=== PATIENT | female | born 1945 | race Caucasian/White ===

== ENCOUNTER → 2017-01-03 | Outpatient (CLI) | payer MEDICARE ==
--- NOTE | 2017-01-03 19:29 | CTL ---
EXAMINATION TYPE: CT Low Dose Lung DATE OF EXAM ORDERED: 01/03/2017 HISTORY: . Lung cancer screening CT DLP: 88.[address] CTDI: 2.95 mGy Automated exposure control for dose reduction was used. SCREENING VISIT: COMPARISON: 08/07/2015 TECHNIQUE: Low dose computed tomography scan was performed through the chest at 1 mm thick sections a nd reconstructed images in the coronal plane at [address] DIAGNOSTIC QUALITY: Satisfactory FINDINGS: LUNG NODULES: None. LUNGS: COPD: Severity: Minimal Fibrosis: Severity: Minimal Lymph nodes: None Other findings: Atherosclerotic ossification in the thoracic aorta. No evidence of aneurysm. Coronary artery calcification. Coarse linear density at the lung bases consistent with fibrosis and atelectasis. RIGHT PLEURAL SPACE: Effusion: None Calcification: None Thickening: None Pneumothorax: None LEFT PLEURAL SPACE: Effusion: None Calcification: None Thickening: Mild pleural thickening at the left lung apex. This is similar to old exam Pneumothorax: None HEART: Heart Size: Normal Coronary calcification: Moderate Pericardial effusion: None IMPRESSION: There is new coarse linear density at the lung bases compared to old exam consistent with scarring and atelectasis. No evidence of a pulmonary mass. Stable mild pleural thickening at the lef t lung apex. There is stable lingula subpleural atelectasis. There is clearing of right middle lobe a telectasis compared to old exam. FOLLOW UP CT CHEST RECOMMENDATION: As indicated CT LUNG RAD: 1
== END | disposition home or self-care (01) ==
LOC: RADCTMAIN 18:56
PROVIDERS: ATTEND Family Medicine
DX: Z12.2 Encounter for screening for malignant neoplasm of respiratory organs (principal); J98.11 Atelectasis; J92.9 Pleural plaque without asbestos; R91.8 Other nonspecific abnormal finding of lung field; Z87.891 Personal history of nicotine dependence

== ENCOUNTER → 2018-07-27 | Outpatient (CLI) | payer MEDICARE ==
--- NOTE | 2018-07-28 03:53 | CTL ---
EXAMINATION TYPE: CT Low Dose Lung DATE OF EXAM ORDERED: 07/27/2018 HISTORY: 72-year-old female Personal history of tobacco use. Lung cancer screening CT DLP: 72.[address] CTDI: 2.4 mGy Automated exposure control for dose reduction was used. SCREENING VISIT: 1.5 year follow-up from prior exam COMPARISON: 01/03/2017 TECHNIQUE: Low dose computed tomography scan was performed through the chest at 1 mm thick sections a nd reconstructed images in the coronal/sagittal plane. Additional coronal MIP reconstructions were pe rformed. CT DIAGNOSTIC QUALITY: Satisfactory FINDINGS: Heart normal size of pericardial effusion. Prominent coronary vessel calcifications are present. Aorta normal caliber with conventional arch was a branching anatomy. Moderate atherosclerotic calcifi cations throughout the thoracic aorta. 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 Scattered nonenlarged mediastinal lymph nodes. No thoracic lymphadenopathy by CT size criteria. Mild to moderate diffuse bronchial wall thickening is redemonstrated with stable strandy scarring inf erior lingula. Additional strandy scarring or atelectasis posterior lung bases. Patchy opacity basilar right middle lobe with air bronchograms is new in the interval. Scattered mild centrilobular emphysema. A few focal areas of endobronchial opacification within the b asilar left lower lobe, referred to axial images 152, 155, 166, and 170. Visualized upper abdomen shows no gross abnormality. Bones: Anterior endplate spondylosis mid to lower thoracic spine. Normal variant sternal foramina. IMPRESSION: 1. Lung RADS 3 - probably benign; new airspace disease right middle lobe and a couple areas of endobr onchial opacification in the basilar left lower lobe. Findings suspected to be on an infectious/infla mmatory basis with mucoid impaction. Also, correlate for possible pneumonia in the right middle lobe. 2. COPD with mild emphysema but either a prominent component of chronic bronchitis or superimposed ac marin bronchitis. 3. CAD and mild aneurysm mid descending thoracic aorta at 3.0 cm. RECOMMENDATION: 1. Six-month follow-up low-dose CT chest to ensure clearance of the right middle lobe consolidation a nd endobronchial densities in the basilar left lower lobe. 2. Correlate for possible pneumonia in the right middle lobe. 3. Smoking cessation. FOLLOW UP CT CHEST RECOMMENDATION: [address] LUNG RAD: Lung-Rad 3 Probably Benign
== END | disposition home or self-care (01) ==
LOC: RADCTMAIN 16:16
PROVIDERS: ATTEND Physician Assistant
DX: Z12.2 Encounter for screening for malignant neoplasm of respiratory organs (principal); F17.210 Nicotine dependence, cigarettes, uncomplicated

== ENCOUNTER → 2020-11-10 | Outpatient (CLI) | payer MEDICARE ==
--- NOTE | 2020-11-10 16:42 | ECHOF ---
Referral Reason:I10 HTN MEASUREMENTS -------- HEIGHT: 152.4 cm WEIGHT: 82.6 kg BP: RVIDd: 2.2 cm (< 3.3) IVSd: 1.4 cm (0.6 - 1.1) LVIDd: 4.6 cm (3.9 - 5.3) LVPWd: 1.1 cm (0.6 - 1.1) IVSs: 1.8 cm LVIDs: 3.2 cm LVPWs: 1.4 cm LAESV Index (A-L): 30.41 ml/m Ao Diam: 2.6 cm (2.0 - 3.7) AV Cusp: 1.2 cm (1.5 - 2.6) LA Diam: 5.0 cm (2.7 - 3.8) MV EXCURSION: 11.243 mm (> 18.000) MV EF SLOPE: 76 mm/s (70 - 150) EPSS: 0.7 cm MV E Hemal: 0.76 m/s MV DecT: 174 ms MV A Hemal: 1.09 m/s MV E/A Ratio: 0.69 AV maxP.38 mmHg AV meanP.59 mmHg RAP: 5.00 mmHg RVSP: 18.30 mmHg FINDINGS -------- Sinus rhythm. This was a technically adequate study. The left ventricular size is normal. There is moderate concentric left ventricular hypertrophy. O verall left ventricular systolic function is normal with, an EF between 55 - 60 %. The right ventricle is normal in size. LA is midly dilated 29-33ml/m2. The right atrial size is normal. Interatrial and interventricular septum intact. There is moderate aortic valve sclerosis. There is mild aortic stenosis present. Peak/mean gradie nt across the Aortic Valve is 15.38mmHg / 8.59mmHg. Mild mitral regurgitation is present. Mild tricuspid regurgitation present. There is no evidence of pulmonary hypertension. The right v entricular systolic pressure, as measured by Doppler, is 18.30mmHg. Trace/mild (physiologic) pulmonic regurgitation. The aortic root size is normal. IVC Not well visulized. There is no pericardial effusion. CONCLUSIONS -------- 1. The left ventricular size is normal. 2. There is moderate concentric left ventricular hypertrophy. 3. Overall left ventricular systolic function is normal with, an EF between 55 - 60 %. 4. LA is midly dilated 29-33ml/m2. 5. There is moderate aortic valve sclerosis. 6. There is mild aortic stenosis present. 7. Mild mitral regurgitation is present. 8. Mild tricuspid regurgitation present. 9. Trace/mild (physiologic) pulmonic regurgitation. FIELD COUNSEL: Tonie Saldivar RDCS
--- NOTE | 2020-11-10 21:44 | CTL ---
EXAMINATION TYPE: CT Low Dose Lung DATE OF EXAM ORDERED: 11/10/2020 HISTORY: Personal history of tobacco use. Lung cancer screening CT DLP: [address] CTDI: 2.68 mGy Automated exposure control for dose reduction was used. SCREENING VISIT: 20 month follow-up from prior exam. COMPARISON: 07/27/2018 TECHNIQUE: Low dose computed tomography scan was performed through the chest at 1 mm thick sections a nd reconstructed images in the coronal plane at [address] DIAGNOSTIC QUALITY: Satisfactory FINDINGS: LUNG NODULES: None. LUNGS: COPD: Severity: Mild Fibrosis: Severity: None Lymph nodes: None Other findings: Small area of lingular consolidation. Right basilar scarring/atelectasis. Central bro nchial wall thickening. RIGHT PLEURAL SPACE: Effusion: None Calcification: None Thickening: None Pneumothorax: None LEFT PLEURAL SPACE: Effusion: None Calcification: None Thickening: None Pneumothorax: None HEART: Heart Size: Normal Coronary calcification: Severe Pericardial effusion: None OTHER FINDINGS: Upper abdomen: Small hiatal hernia. Bony thorax: Degenerative changes of the spine. Supraclavicular region: Unremarkable. Other: Dense atherosclerotic disease of the aorta. IMPRESSION: 1. Small lingular consolidation which could represent pneumonia in the appropriate clinical setting. Recommend short-term follow-up in 3 months to assess for resolution. 2. No suspicious lung nodules. CT LUNG RAD AND CT CHEST RECOMMENDATION: Lung-Rad 1 Negative: Continue annual screening with LDCT in 12 months. S Modifier (other clinically significant findings): Small lingular consolidation.
== END | disposition home or self-care (01) ==
LOC: RADCTMAIN 13:28
PROVIDERS: ATTEND Family Medicine
DX: I08.3 Combined rheumatic disorders of mitral, aortic and tricuspid valves (principal); Z12.2 Encounter for screening for malignant neoplasm of respiratory organs; J18.9 Pneumonia, unspecified organism
CPT/HCPCS: 71271; 93306

== ENCOUNTER → 2022-10-15 | Outpatient (CLI) | payer MEDICARE ==
--- NOTE | 2022-10-15 19:22 | BD ---
EXAMINATION TYPE: Axial Bone Density DATE OF EXAM: 10/15/2022 CLINICAL HISTORY: 77 years old Female. ICD-10 CODE: Z78.0 ASYMPTOMATIC MENOPAUSAL STATE Height: 59 Weight: 159.6 FRAX RISK QUESTIONS: Alcohol (3 or more units per day): no Family History (Parent hip fracture): no Glucocorticoids (More than 3mos): no (Ex: prednisone, prednisolone, methylprednisolone, dexamethasone, and hydrocortisone). History of Fracture in Adulthood: no Secondary Osteoporosis: 1. Type 1 Diabetes: no 2. Hyperthyroidism: no 3. Menopause before 45: no 4. Malnutrition: no 5. Chronic liver disease: no Rheumatoid Arthritis: no Current Tobacco Use: yes RISK FACTORS HISTORY OF: History of Wrist Fracture: right When: as a child Surgery to Spine/Hip(right/left)/Wrist (right/left): no Family History of Osteoporosis: no Active: no Diet low in dairy products/other sources of calcium: yes Postmenopausal woman: yes Lost more than 2 inches in height since high school: no MEDICATIONS: Additional History: EXAM MEASUREMENTS: Bone mineral densitometry was performed using the MC2 System. Bone mineral density as measured about the Lumbar spine is: ----- L1-L4(G/cm2): 1.169 T Score Values are as follows: ----- L1: -0.1 ----- L2: 0.0 ----- L3: -0.2 ----- L4: -0.3 ----- L1-L4: -0.1 Z Score Values are as follows: ----- L1: 1.5 ----- L2: 1.6 ----- L3: 1.4 ----- L4: 1.2 ----- L1-L4: 1.4 Bone mineral density : baseline Bone mineral density about the R hip (g/cm2): 0.822 Bone mineral density about the L hip (g/cm2): 0.827 T Score values are as follows: -----R Neck: -2.0 -----L Neck: -2.1 -----R Total: -1.5 -----L Total: -1.4 Z Score values are as follows: -----R Neck: -0.2 -----L Neck: -0.3 -----R Total: 0.1 -----L Total: 0.2 Bone mineral density : baseline FRAX%s: The graph provided illustrates a 15.0% chance for a major osteoporotic fx and a 6.1% chance f or the hips probability for fx in 10 years time. IMPRESSION: Osteopenia (T Score between -2.5 and -1). There is slightly increased risk of fracture and the patient may be considered for treatment. Re-Screen 2-5 years. NOTE: T-SCORE=SD OF THE YOUNG ADULT MEAN.
--- NOTE | 2022-10-16 19:12 | MM ---
Reason for Exam: Screening (asymptomatic). Last mammogram was performed 10 year(s) and 2 month(s) ago. Patient History: Menarche at age 12. First Full-Term at age 19. Left ovary removed at age 46. Right ovary removed at age 46. Hysterectomy at age 46. Postmenopausal. Patient has history of breast feeding. Patient used Estrogen for 8 years. Mother had breast cancer at or over age 50. Risk Values: Paty 5 year model risk: 3.6%. NCI Lifetime model risk: 7.2%. Prior Study Comparison: No prior studies available for comparison. Tissue Density: There are scattered fibroglandular densities. Findings: Analyzed By CAD. Fibroglandular density is present primarily in the subareolar region of both breasts. There is no suspicious group of microcalcifications, significant mass, or other discrete abnormality in either breast. Overall Assessment: Benign, BI-RAD 2 Management: Screening Mammogram of both breasts in 1 year. . Patient should continue monthly self-breast exams. A clinical breast exam by your physician is recommended on an annual basis. This exam should not preclude additional follow-up of suspicious palpable abnormalities. Note on Paty scores and lifetime risk: 1. A Paty score greater than 3% is considered moderate risk. If this is the case, consider specialist referral to assess eligibility for a risk reducing agent. 2. If overall lifetime risk for the development of breast cancer is 20% or higher, the patient may qualify for future screening with alternating mammogram and breast MRI. Electronically signed and approved by: Kenia Robert M.D. Radiologist
== END | disposition home or self-care (01) ==
LOC: RADMAMWWP 15:30
PROVIDERS: ATTEND Family Medicine
DX: Z12.31 Encounter for screening mammogram for malignant neoplasm of breast (principal); M85.89 Other specified disorders of bone density and structure, multiple sites; Z78.0 Asymptomatic menopausal state; Z80.3 Family history of malignant neoplasm of breast
CPT/HCPCS: 77063; 77067; 77080

== ENCOUNTER → 2023-08-08 | Outpatient (CLI) | payer MEDICARE ==
--- NOTE | 2023-08-18 11:00 | CTL ---
EXAMINATION TYPE: CT Low Dose Lung DATE OF EXAM: 08/08/2023 6:16 PM CLINICAL INDICATION:Female, 78 years old with history of F17.210 NICOTINE DEPENDENCE; Current smoker. [id number]. , history of tobacco use. COMPARISON: 11/10/2020 TECHNIQUE: Multiple axial non-contrast scans were obtained from approximately the lung apices through the upper abdomen. Coronal and sagittal reformatted images were obtained. Low dose technique was uti lized. CT DLP: 82.6 mGycm, Automated exposure control for dose reduction was used. CT Contrast: Contrast used: None Oral contrast used: None FINDINGS: ======== Lack of intravenous contrast and low dose technique limits the evaluation of the vascular and soft ti ssue structures. LUNGS: No evidence of pulmonary fibrosis. No evidence of focal consolidation, pneumothorax or pleural effusion. Mild centrilobular emphysema changes. Nodules: RUL: None. RML: None. RLL: None. MYRTLE: None. LLL: None. AIRWAY: Patent and unremarkable. HEART: The heart is mildly enlarged for size. Coronary artery and aortic valve calcifications. MEDIASTINUM: No gross evidence of adenopathy. VASCULATURE: No aortic aneurysm. MUSCULOSKELETAL: No acute osseous abnormalities SOFT TISSUES/LYMPH NODES: Unremarkable. LOWER NECK: No significant findings. UPPER ABDOMEN: No significant findings. IMPRESSION: 1. No clinically significant pulmonary nodules. 2. Mild emphysema. 3. Coronary artery and aortic valve leaflet calcifications. CT LUNG RAD AND CT CHEST RECOMMENDATION: Lung-Rad 1 Negative: Continue annual screening with LDCT in 12 months. S Modifier (other clinically significant findings): None Recommend smoking cessation (if current smoker), or continuation of smoking cessation (if prior smoke r). Annual screening for lung cancer with low-dose computed tomography is recommended in adults ages 55 to 77 years who have a 30 pack-year smoking history and currently smoke or have quit within the pa st 15 years. Screening should be discontinued once a person has not smoked for 15 years or develops a health problem that substantially limits life expectancy or the ability or willingness to have curat zafar lung surgery. Lung rads 2021 [email or web address]
== END | disposition home or self-care (01) ==
LOC: RADCTMAIN 17:33
PROVIDERS: ATTEND Family Medicine
DX: Z12.2 Encounter for screening for malignant neoplasm of respiratory organs (principal); J43.2 Centrilobular emphysema; F17.210 Nicotine dependence, cigarettes, uncomplicated; I25.10 Atherosclerotic heart disease of native coronary artery without angina pectoris; I35.8 Other nonrheumatic aortic valve disorders
CPT/HCPCS: 71271

== ENCOUNTER → 2023-10-01 | Outpatient (CLI) | payer MEDICARE | END | disposition home or self-care (01) | LOC: LABWHC1 16:27 | PROVIDERS: ATTEND Student in an Organized Health Care Education/Training Program | DX: I50.9 Heart failure, unspecified (principal) | CPT/HCPCS: 36415; 83036; 83880; 84484 ==

== ENCOUNTER 2023-11-21 13:42 | Day surgery (SDC) | payer MEDICARE ==
[~2023-11-21 13:42] MED LIST: ALBUTEROL NEBULIZED 2.5 MG/3 ML INHALATION ONE; ALPRAZolam 0.5 MG TAB ONE; HEPARIN SODIUM,PORCINE 10,000 UNIT/ML 1 ML VIAL ONE; SODIUM CHLORIDE 0.9% 1,000 ML BAG ONE
[2023-11-21] MEDS ORDERED: LIDOCAINE 1% INJ 10MG/ML (20 ML MDV) ONE (13:45)
[2023-11-21] MEDS ORDERED: VERAPAMIL 2.5 MG/ML 2 ML AMP ONE (13:45)
[2023-11-21] MEDS ORDERED: HEPARIN SODIUM,PORCINE 5,000 UNIT/ML 1 ML VIAL ONE (13:50)
[2023-11-21] MEDS ORDERED: SODIUM CHLORIDE 0.9% 250 ML BAG ONE (13:50)
[2023-11-21] MEDS ORDERED: MIDAZOLAM 2 MG/2 ML VIAL ONE (13:51)
[2023-11-21] MEDS ORDERED: HEPARIN SODIUM 1,000 UN/ML (10ML VL) ONE (13:51)
[2023-11-21] MEDS ORDERED: fentaNYL (PF) 50 MCG/ML 2 ML AMP ONE (13:51)
[2023-11-21] MEDS ORDERED: CLOPIDOGREL 75 MG TAB ONE (14:22)
[2023-11-21] MEDS ORDERED: NITROGLYCERIN-D5W PMX 25 MG/250 ML BTL IV ONE (15:00)
[2023-11-21] MEDS: IOPAMIDOL-370 100ML BTL INJ ONE (15:10)
[2023-11-21] MEDS ORDERED: MAG HYDROX/AL HYDROX/SIMETH 30 ML CUP ONE (15:36)
== END 2023-11-21 18:20 | disposition home or self-care (01) ==
LOC: CATHCVL 13:42
PROVIDERS: ATTEND Student in an Organized Health Care Education/Training Program
DX: R94.39 Abnormal result of other cardiovascular function study
CPT/HCPCS: 93458; 93571; 94640